=== PATIENT | female | born 1955 | race Caucasian/White ===

== ENCOUNTER 2021-05-10 08:18 | Outpatient (CLI) | payer MEDICARE, BC, SELFPAY ==
--- NOTE | ~2021-05-10 | MM_ITS ---
EXAMINATION: MM screening [facility] BI w vicky HISTORY: Screening mammogram TECHNIQUE: Craniocaudal and mediolateral oblique 3-D tomosynthesis images were obtained and synthetic 2-D images were generated. CAD analysis was submitted and interpreted. COMPARISON: 12/24/2018, 10/16/2016 4315 BREAST PARENCHYMAL COMPOSITION: There are scattered areas of fibroglandular density. FINDINGS: There is no evidence of suspicious mass, calcification, or architectural distortion to sugg est malignancy in either breast. There has been no suspicious interval change. IMPRESSION: 1. No mammographic evidence of malignancy. 2. Recommend routine screening mammography in one year. BI-RADS Category 1: Negative Reviewed, dictated and finalized at location A.
== END 2021-05-10 08:19 | disposition home or self-care (01) ==
LOC: ANHIMG 08:28
PROVIDERS: PCP Family Medicine; Visit Provider Obstetrics & Gynecology
DX: Z12.31 Encounter for screening mammogram for malignant neoplasm of breast (principal)
CPT/HCPCS: 77063; 77067

== ENCOUNTER 2023-01-02 09:52 | Outpatient (CLI) | payer MEDICARE, BC, SELFPAY ==
--- NOTE | ~2023-01-02 | MM_ITS ---
EXAMINATION: MM screening [facility] BI w vicky HISTORY: Screening mammogram TECHNIQUE: Craniocaudal and mediolateral oblique 3-D tomosynthesis images were obtained and synthetic 2-D images were generated. CAD analysis was submitted and interpreted. COMPARISON: 05/10/2021, 12/24/2018, 10/16/2016 BREAST PARENCHYMAL COMPOSITION: There are scattered areas of fibroglandular density. FINDINGS: No suspicious mass, calcification, or architectural distortion are identified in either prisca ast to suggest malignancy. There has been no suspicious interval change. IMPRESSION: 1. No mammographic evidence of malignancy. 2. Recommend routine screening mammography in one year. BI-RADS Category 1: Negative Reviewed, dictated and finalized at location A.
== END 2023-01-02 09:53 | disposition home or self-care (01) ==
PROVIDERS: PCP Family Medicine; Visit Provider Family Medicine
DX: Z12.31 Encounter for screening mammogram for malignant neoplasm of breast (principal)
CPT/HCPCS: 77063; 77067

== ENCOUNTER 2023-08-13 13:43 | Outpatient (CLI) | payer MEDICARE, BC, SELFPAY ==
--- NOTE | ~2023-08-13 | DEXA_ITS ---
Bone Density Report Name: EDWIGE SANDERS Age: 67 Sex: Female Ethnicity: White Date of : 1955 Indication: osteopenia; parental hip fracture; cancer; postmenopausal Referring Provider: MAILE HSIEH Study: Bone densitometry was performed. Exam Date: August 13, 2023 Accession number: [id number] Bone Density: Region BMD T-score Z-score Classification AP Spine(L1-L4) 0.845 -1.8 0.1 Osteopenia Femoral Neck (Left) 0.622 -2.0 -0.4 Osteopenia Total Hip (Left) 0.742 -1.6 -0.3 Osteopenia Femoral Neck (Right) 0.688 -1.5 0.2 Osteopenia Total Hip (Right) 0.779 -1.3 0.0 Osteopenia Total Hip Mean 0.761 -1.5 -0.2 Osteopenia World Health Organization criteria for BMD impression classify patients as: Normal (T-score at or above -1.0), Osteopenia (T-score between -1.0 and -2.5), or Osteoporosis (T-score at or below -2.5). 10-year Fracture Risk(1): Major Osteoporotic Fracture 19% Hip Fracture 3.0% Reported Risk Factors: [place] (), Neck BMD=0.622, BMI=26.2, parental fracture (1) FRAX(R) Version 3.08. Fracture probability calculated for an untreated patient. Fracture probability may be lower if the patient has received treatment. Previous Exams: Region Exam Age BMD T-score BMD Change BMD Change Date g/cm2 vs Baseline vs Previous AP Spine (L1-L4) 08/13/2023 67 0.845 -1.8 0.012 (1.5%) 0.005 (0.6%) 12/24/2018 63 0.840 -1.9 0.007 (0.9%) 0.007 (0.9%) 10/16/2016 60 0.833 -1.9 Total Hip(Left) 08/13/2023 67 0.742 -1.6 -0.008 (-1.1%) -0.011 (-1.5%) 12/24/2018 63 0.753 -1.5 0.003 (0.4%) 0.003 (0.4%) 10/16/2016 60 0.750 -1.6 Total Hip(Right) 08/13/2023 67 0.779 -1.3 -0.001 (-0.2%) -0.012 (-1.5%) 12/24/2018 63 0.791 -1.2 0.010 (1.3%) 0.010 (1.3%) 10/16/2016 60 0.781 -1.3 *Denotes significance at 95% confidence level, LSC for AP Spine = 0.022 g/cm2, LSC for Total Hip = 0.027 g/cm2 Clinical Information Provided by Patient: Parent has had a hip fracture Has used the following medications: Vitamin D, Calcium Has the following medical conditions: Cancer Patient maximum height was 63 Menopause Age: 55 Drinks caffeinated beverages Onset of menses at age 13 Number of children 1 Impression: The patient has low bone mass, based on the Left Femoral Neck T-score. The patient has an estimated ten-year risk of hip fracture of 3% and an estimated ten-year risk of major fracture of
== END 2023-08-13 13:44 | disposition home or self-care (01) ==
LOC: ANHIMG 13:45
PROVIDERS: PCP Family Medicine; Visit Provider Family Medicine
DX: Z78.0 Asymptomatic menopausal state (principal); M85.88 Other specified disorders of bone density and structure, other site; M85.852 Other specified disorders of bone density and structure, left thigh; M85.851 Other specified disorders of bone density and structure, right thigh
CPT/HCPCS: 77080

== ENCOUNTER 2023-11-08 10:02 | Emergency (ER) | payer MEDICARE, BC, SELFPAY ==
--- NOTE | 2023-11-08 10:07 | ED.URI ---
HPI - URI/Sore Throat General Chief Complaint: Upper Respiratory Infection Stated Complaint: Sore Throat,Head Congestion Time Seen by Provider: 11/08/23 10:26 Source: patient, RN notes reviewed and old records reviewed Mode of arrival: ambulatory Limitations: no limitations History of Present Illness HPI Narrative: 67-year-old female presents to the [facility] with complaints of chills sore throat and head congestion that started yesterday Reports that her daughter and grandson were positive for COVID 1 on last Friday, 6 days ago 1 on Friday, 3 days ago Onset (ago): day(s) (1) Treatments prior to arrival: acetaminophen Related Data Home Medications Medication Instructions Recorded Confirmed calcium carbonate 600 mg-vitamin 1 cap PO BID 09/20/19 11/08/23 D3 5 mcg (200 unit) capsule (Calcium 600 + D(3)) gbpenixu-jlc-zhrzq ac 400 1 tablet PO DAILY 08/19/23 11/08/23 mcg-calcium carb 500 mg-vit K1 20 mcg tablet (Women's 50 Plus Multivitamin) Allergies Allergy/AdvReac Type Severity Reaction Status Date / Time Sulfa (Sulfonamide AdvReac Mild Rash Verified 11/08/23 10:10 Antibiotics) tetracycline AdvReac Mild Rash Verified 11/08/23 10:10 Review of Systems Review of Systems: All systems reviewed & are unremarkable except as noted in HPI and below Constitutional: Constitutional: Reports no additional constitutional complaints Eyes: Eyes: Reports no additional eye complaints ENT: Reports as per HPI, Reports nasal congestion and Reports sore throat Cardiovascular: Cardiovascular: Reports no additional cardiovascular complaints, Denies chest pain and Denies dyspnea Respiratory: Respiratory: Reports no additional respiratory complaints, Denies chest congestion, Denies cough and Denies dyspnea Gastrointestinal: Gastrointestinal: Reports no additional gastrointestinal complaints, Denies abdominal pain, Denies nausea and Denies vomiting Musculoskeletal: Musculoskeletal: Reports no additional musculoskeletal complaints Integumentary/Breasts: Skin/Breast: Reports system reviewed and no additional complaints, except as docu Neurologic: Reports system reviewed and no additional complaints, except as documented Psychiatric: Psychiatric: Reports no additional psychiatric complaints Allergic/Immunologic: Allergic/Immunologic: Reports no additional allergic/immunologic complaints PMFSH Past Medical History Medical History Osteopenia Personal history of bladder cancer Pure hypercholesterolemia Surgical History Surgical History History of appendectomy 12/22/2014 History of ear surgery 1981 History of foot surgery 1985 History of lithotripsy 09/2011 History of tonsillectomy High School History of transurethral resection of bladder tumor (TURBT) 12/09/2014 Family History Family History Mother Cerebrovascular accident Other Diabetes mellitus Family history of malignant neoplasm Social History Social History Smoking status: Never smoker Alcohol intake: never Substance use: never Substance use type: does not use Lack of Transportation: No Lack of Food: Never True Current Housing: I Have Housing Concerned About Future Housing: No Difficulty Paying Gas/Electric Bills: No Difficulty Paying for Meds: No Currently Unemployed: No Education: Bachelor's Degree Difficulty w/ Childcare or Family Care: No Living arrangements: with family Occupation/Education: retired Gender identity (if verbalized by the patient): Female Sexual Orientation (if Verbalized by the Patient): Straight or Heterosexual Spiritual care concerns: No Agree to blood products: No Comments At the time of my signature, I reviewed and agree with the nursing past medic
[2023-11-08 10:17] VITALS: BP 134/67; PULSE 99; RESP 16; TEMP 36.4; O2SAT 100
== END 2023-11-08 11:06 | disposition home or self-care (01) ==
PROVIDERS: Emergency Provider Nurse Practitioner; PCP Family Medicine
DX: J06.9 Acute upper respiratory infection, unspecified (principal); Z20.822 Contact with and (suspected) exposure to COVID-19; E78.00 Pure hypercholesterolemia, unspecified; M85.80 Other specified disorders of bone density and structure, unspecified site; Z85.51 Personal history of malignant neoplasm of bladder
CPT/HCPCS: 87426; 87804; 99213; G0463

== ENCOUNTER 2024-04-19 09:50 | Outpatient (CLI) | payer MEDICARE, BC, SELFPAY | END 2024-04-19 09:51 | PROVIDERS: PCP Family Medicine; Visit Provider Family Medicine | DX: M25.562 Pain in left knee (principal) | CPT/HCPCS: 73562 ==

== ENCOUNTER 2024-04-22 15:43 | Outpatient (CLI) | payer MEDICARE, BC, SELFPAY ==
--- NOTE | ~2024-04-22 | MM_ITS ---
EXAMINATION: MM screening [facility] BI w vicky HISTORY: Screening TECHNIQUE: Craniocaudal and mediolateral oblique 3-D tomosynthesis images were obtained and synthetic 2-D images were generated. CAD analysis was submitted and interpreted. COMPARISON: Comparison to multiple prior studies sequentially, with oldest reviewed study dated 11/2014. BREAST PARENCHYMAL COMPOSITION: Not dense: There are scattered areas of fibroglandular density. FINDINGS: There is no evidence of suspicious mass, calcification, or architectural distortion to sugg est malignancy in either breast. There has been no suspicious interval change. IMPRESSION: 1. No mammographic evidence of malignancy. 2. Recommend routine screening mammography in one year. BI-RADS Category 1: Negative Reviewed, dictated and finalized at location B.
== END 2024-04-22 15:44 | disposition home or self-care (01) ==
LOC: ANHIMG 15:44
PROVIDERS: PCP Family Medicine; Visit Provider Family Medicine
DX: Z12.31 Encounter for screening mammogram for malignant neoplasm of breast (principal)
CPT/HCPCS: 77063; 77067

== ENCOUNTER 2024-10-19 12:37 | Outpatient (CLI) | payer MEDICARE, BC, SELFPAY ==
--- NOTE | 2024-10-19 | ECG_ITS ---
Test Date: 2024-10-19 13:32:38 Measurements Intervals Bradley Rate: 61 P: 68 MN: 200 QRS: 35 QRSD: 98 T: 31 QT: 399 QTc: 405 Interpretive Statements SINUS RHYTHM INCOMPLETE RIGHT BUNDLE BRANCH BLOCK VOLTAGE CRITERIA FOR LVH CONSIDER INFERIOR INFARCT, AGE INDETERMINATE NONSPECIFIC T-WAVE ABNORMALITY- ANTERIOR LEADS ABNORMAL ECG No previous ECG available for comparison Electronically Signed On 10-19-2024 13:43:25 SENIOR AUDIT MANAGER by Shashi Pettit D.O.
--- OUTSIDE RECORDS SUMMARY | 2024-10-19 12:47 | XMS_ITS | Patient Health Summary ---
Author Organization [facility] Address [address] [place] [address] Care Team Providers Care Cpa Tax Name Role Phone Talat Rosales MD Primary Care Provider [phone] Note from [facility],non-owned Affiliates and Associated Physician Practices is amultiple site organization consisting of ambulatory clinics and hospital sitesin [place], [place], [place] and [place]. This disclosure is being madepursuant to the Care Everywhere program and may not contain all information available regarding this patient. Last updated 18.[facility] Social History Tobacco Use Types Packs/Day Years Used Date Smoking Tobacco: Never Assessed Sex and Gender Information Value Date Recorded Sex Assigned at Not on file Gender Identity Not on file Sexual Orientation Not on file Procedures * DERMATOPATHOLOGY(Performed 10/23/2023) * DERMATOPATHOLOGY(Performed 08/28/2016) Results * DERMATOPATHOLOGY (10/23/2023 9:34 AM GROMMET WORKER) Only the most recent of2 resultswithin the time period is included. Case Report Dermatopathology Report ? Case: [id number] ? Authorizing Provider: ??Irena Mabry MD ? Collected: ? 10/23/2023 09:34 AM ? Ordering Location: ? [facility] ? Received: ?10/24/2023 04:40 PM ? Pathologist: ? Janice Martinez MD ? Specimen: ?Skin, right lateral cheek ? 4 12:[address] [facility] Final Diagnosis Specimen A. SKIN, right lateral cheek: HYPERPLASTIC (HYPERTROPHIC) ACTINIC KERATOSIS (L57.0) (see microscopic description) 12:[address] [facility] Clinical History R/O NMSC 12:[address] [facility] Gross Description Specimen A: Received is one formalin filled container labeled with the patient's name and designated right lateral cheek. The specimen consists of a shave biopsy measuring 2x4x1 mm. Jar 0. 12:[address] [facility] Microscopic Description Specimen A. SKIN, right lateral cheek: There is hyperkeratosis alternating with parakeratosis. There is epidermal hyperplasia with disorderly maturation of keratinocytes with nuclear pleomorphism confined to the lower half of the epidermis. Additional deeper sections were obtained and reviewed. 12:[address] [facility] Disclaimer An external and internal positive and negative controls are appropriate for the histochemical, immunohistochemical and immunofluorescence stain(s) in this case (if any), except where stated explicitly. The performance characteristics of the stain(s) cited in this report were developed and its performance characteristic determined by the Dermatopathology Laboratory at [facility], directed by Dr. Shilo Hall. These tests need not be, and therefore are not, approved by the [place] Food and Drug Administration. The tests are used for clinical purposes. Billing Codes Specimen Charges Stain Charges 52297 1 4 12:[address] [facility] Embedded Images 12:19 PM GROMMET WORKER DERMATOPATHOLOGY LABORATORY Pathology/Cytolo gy TISSUE SPECIMEN FROM SKIN / Unknown 10/23/2023 9:34 AM GROMMET WORKER 10/24/2023 4:40 PM GROMMET WORKER Irena Mabry MD LAB - PATHOLOGY/CYT OLOGY ORDERABLES DERMATOPATHOLOGY LABORATORY [facility] - Department of Dermatology [facility] [address] [place] [address], [address] [phone] Care Teams Cpa Tax Relationship Specialty Start Date End Date Talat Rosales MD PCP - General 11/22/14
--- OUTSIDE RECORDS SUMMARY | 2024-10-19 12:47 | XMS_ITS | Referral Summary ---
Author Organization [facility] Address [address] [place] [address] Care Team Providers Care Maintenance Shop Technician Name Role Phone Talat Rosales MD Primary Care Provider [phone] Source Comments [facility],non-owned Affiliates and Associated Physician Practices is amultiple site organization consisting of ambulatory clinics and hospital sitesin [place], [place], [place] and [place]. This disclosure is being madepursuant to the Care Everywhere program and may not contain all information available regarding this patient. Last updated 18.[facility] Social History Tobacco Use Types Packs/Day Years Used Date Smoking Tobacco: Never Assessed Sex and Gender Information Value Date Recorded Sex Assigned at Not on file Gender Identity Not on file Sexual Orientation Not on file Plan of Treatment Not on file Care Teams Maintenance Shop Technician Relationship Specialty Start Date End Date Talat Rosales MD [facility] - General 11/22/14
--- OUTSIDE RECORDS SUMMARY | 2024-10-19 12:47 | XMS_ITS | Referral Summary ---
Author Organization [facility] Address [address] [place] [address] Care Team Providers Care Surgical Services Director Name Role Phone Talat Rosales MD Primary Care Provider [phone] Allergies Active Allergy Reactions Criticality Noted Date Comments Sulfa (Sulfonamide Antibiotics) Rash Medium 03/15 Tetracyclines Rash Medium 04/02/2019 Medications calcium carbonate-vitami n D3 (CALTRATE 600 + D) 1500 mg (600 mg elemental) -400 units per tablet Take 1 tablet by mouth daily Active Active Problems Problem Noted Date Diagnosed Date Sensorineural hearing loss ( SNHL) of right ear with restricted hearing of left ear 10/17/2021 Otosclerosis of left ear 03/04/2019 Overview (03/04/2019): Added automatically from request for surgery [id number] Mixed conductive and sensori neural hearing loss of right ear with restricted hearing of left ear 03/04/2019 Overview (03/04/2019): Added automatically from request for surgery [id number] Social History Tobacco Use Types Packs/Day Years Used Date Smoking Tobacco: Never Smokeless Tobacco: Never Alcohol Use Standard Drinks/Week Comments Never 0 (1 standard drink = 0.6 oz pur e alcohol) AUDIT-C Answer Date Recorded Frequency of Alcohol Consumption Never 04/02/2019 Average Number of Drinks Not on file 019 Frequency of Binge Drinking Not on file 03/15 Comments No Sex and Gender Information Value Date Recorded Sex Assigned at Not on file Legal Sex Female 7:59 PM BROKER ASSOCIATE Gender Identity Not on file Sexual Orientation Not on file Last Filed Vital Signs Vital Sign Reading Time Taken Comments Blood Pressure 126/67 04/02/2019 9:45 AM CDT Pulse 57 04/02/2019 9:50 AM CDT Temperature 36.4 ??C (97.5 ??F) 04/02/2019 9:22 AM CD T Respiratory Rate 17 10/15/2021 8:15 AM BROKER ASSOCIATE Oxygen Saturation 98% 04/02/2019 9:50 AM CDT Inhaled Oxygen Concentration - - Weight 63.5 kg (140 lb) 10/15/2021 8:15 AM BROKER ASSOCIATE Height 160 cm (5' 3 ) 10/15/2021 8:15 AM BROKER ASSOCIATE Body Mass Index 24.8 10/15/2021 8:15 AM BROKER ASSOCIATE Plan of Treatment Not on file Medical Devices Implanted Type Area Adjustment Examiner Device Identifier Shelf Expiration Date Model / Serial / Lot [employer] 469-097 Eclipse .5mm 4.25mm Shaft Piston Prosthesis Ossicular Nitinol - [id number] Implanted:Qty: 1 on 04/02/2019 by Jose Leiva Jr., MD at [facility] Piston Left: [employer] [id number] 03/12/2021 [id number] / / [id number] Insurance MEDICARE [facility] Care Teams Surgical Services Director Relationship Specialty Start Date End Date Talat Rosales MD [address] [place] [id number] PCP - General 04/02/19
--- OUTSIDE RECORDS SUMMARY | 2024-10-19 12:47 | XMS_ITS | Clinical Summary ---
Author Organization [facility] Address [address] [place] [address] Care Team Providers Care Cloth Desizing Range Tender Name Role Phone Talat Rosales MD Primary Care Provider [phone] Allergies Active Allergy Reactions Criticality Noted Date [...] (03/04/2019): Added automatically from request for surgery [id number] Mixed conductive and sensori neural hearing loss of right ear with restricted hearing of left ear 03/04/2019 Overview (03/04/2019): Added automatically from request for surgery [id number] Surgical History Surgery Date Site/Laterality Comments FOOT SURGERY 09/15/1984 - 09/14/1985 BLADDER SURGERY November 2014, Jun 2015 STAPEDOTOMY 09/15/1982 - 09/14/1983 Left APPENDECTOMY 09/15/2014 - 09/14/2015 TONSILLECTOMY 09/15/1973 - 09/14/1974 Medical History Medical History Date Comments Cancer (CMS/HCC) (HCC) Bladder C ancer Tinnitus HL (hearing loss) Family History Medical History Relation Name Comments Cancer Other Relation Name Status Comments Other Social History Tobacco Use Types Packs/Day Years [...] on file Legal Sex Female 7:59 PM AUTOMATIC SCREWMAKER Gender Identity Not on file Sexual Orientation Not on file Obstetrics History Last Filed Vital Signs Vital Sign Reading Time Taken Comments Blood Pressure 126/67 04/02/2019 9:45 AM CDT Pulse 57 04/02/2019 9:50 AM CDT Temperature 36.4 ??C (97.5 ??F) 04/02/2019 9:22 AM CD T Respiratory Rate 17 10/15/2021 8:15 AM AUTOMATIC SCREWMAKER Oxygen Saturation 98% 04/02/2019 9:50 AM CDT Inhaled Oxygen Concentration - - Weight 63.5 kg (140 lb) 10/15/2021 8:15 AM AUTOMATIC SCREWMAKER Height 160 cm (5' 3 ) 10/15/2021 8:15 AM AUTOMATIC SCREWMAKER Body Mass Index 24.8 10/15/2021 8:15 AM AUTOMATIC SCREWMAKER Plan of Treatment Not on file Medical Devices Implanted Type Area Physical Trainer Device Identifier Shelf Expiration Date Model / Serial / Lot [employer] [id number] Eclipse .5mm 4.25mm Shaft Piston Prosthesis Ossicular Nitinol - [id number] Implanted:Qty: 1 on 04/02/2019 by Jose Leiva Jr., MD at [facility] Piston Left: [employer] [id number] 03/12/2021 [id number] / / [id number] Insurance [employer] ACCESS MEDICARE [facility] Care Teams Cloth Desizing Range Tender Relationship Specialty Start Date End Date Talat Rosales MD [address] [place] [id number] PCP - General 04/02/19
--- OUTSIDE RECORDS SUMMARY | 2024-10-19 12:47 | XMS_ITS | Encounter Summary ---
Author Organization [facility] Address [address] [facility] [place] [address] Care Team Providers Care Regional Director Name Role Phone Talat Rosales MD Primary Care Provider [phone] Encounter Details Date Type Department Care Team (Late st Contact Info) Description 10/23/2023 Lab Requisition [facility] - DermPath Lab [address] [facility], [place] [address] Irena Mabry MD [address] [facility] 3 [place] [address] Social History Tobacco Use Types Packs/Day Years Used Date Smoking Tobacco: Never Assessed Sex and Gender Information Value Date Recorded Sex Assigned at Not on file Gender Identity Not on file Sexual Orientation Not on file documented as of this encounter Plan of Treatment Not on file documented as of this encounter Procedures Procedure Name Priority Date/Time Associated Diagnosis Comments DERMATOPATHOLOGY Routine 10/23/2023 9:34 AM CLAY STRUCTURE BUILDER AND SERVICER documented in this encounter Results * DERMATOPATHOLOGY (10/23/2023 9:34 AM CLAY STRUCTURE BUILDER AND SERVICER) Case Report Dermatopathology Report ? Case: [id number] ? Authorizing Provider: ??Irena Mabry MD ? Collected: ? 10/23/2023 09:34 AM ? Ordering Location: ? [facility] ? Received: ?10/24/2023 04:40 PM ? Pathologist: ? Janice Martinez MD ? Specimen: ?Skin, right lateral cheek ? 12:19 PM [facility] DERMATOPATHOLOGY LABORATORY Final Diagnosis Specimen A. SKIN, right lateral cheek: HYPERPLASTIC (HYPERTROPHIC) ACTINIC KERATOSIS (L57.0) (see microscopic description) 12:19 PM [facility] DERMATOPATHOLOGY LABORATORY Clinical History R/O NMSC 12:19 PM [facility] DERMATOPATHOLOGY LABORATORY Gross Description Specimen A: Received is one formalin filled container labeled with the patient's name and designated right lateral cheek. The specimen consists of a shave biopsy measuring 2x4x1 mm. Jar 0. 12:19 PM [facility] DERMATOPATHOLOGY LABORATORY Microscopic Description Specimen A. SKIN, right lateral cheek: There is hyperkeratosis alternating with parakeratosis. There is epidermal hyperplasia with disorderly maturation of keratinocytes with nuclear pleomorphism confined to the lower half of the epidermis. Additional deeper sections were obtained and reviewed. 12:19 PM [facility] DERMATOPATHOLOGY LABORATORY Disclaimer An external and internal positive and negative controls are appropriate for the histochemical, immunohistochemical and immunofluorescence stain(s) in this case (if any), except where stated explicitly. The performance characteristics of the stain(s) cited in this report were developed and its performance characteristic determined by the Dermatopathology Laboratory at [facility], directed by Dr. Shilo Hall. These tests need not be, and therefore are not, approved by the [place] Food and Drug Administration. The tests are used for clinical purposes. Billing Codes Specimen Charges Stain Charges 85553 1 02/13/202 4 12:19 PM CLAY STRUCTURE BUILDER AND SERVICER DERMATOPATHOLOGY LABORATORY Embedded Images 4 12:19 PM CLAY STRUCTURE BUILDER AND SERVICER DERMATOPATHOLOGY LABORATORY Pathology/Cytolo gy TISSUE SPECIMEN FROM SKIN / Unknown 10/23/2023 9:34 AM CLAY STRUCTURE BUILDER AND SERVICER 10/24/2023 4:40 PM CLAY STRUCTURE BUILDER AND SERVICER Irena Mabry MD LAB - PATHOLOGY/CYT OLOGY ORDERABLES DERMATOPATHOLOGY LABORATORY [facility] - Department of Dermatology [facility] Specialized Medicine [address] [place] [address], [address] [phone] documented in this encounter Visit Diagnoses Not on filedocumented in this encounter Care Teams Regional Director Relationship Specialty Start Date End Date Talat Rosales MD PCP - General 11/22/14 documented as of this encounter
--- OUTSIDE RECORDS SUMMARY | 2024-10-19 12:47 | XMS_ITS | Clinical Summary ---
Author Organization [facility] Address [address] [facility] [place] [address] Care Team Providers Care Vault Worker Name Role Phone Talat Rosales MD Primary Care Provider [phone] Source Comments [facility] [email or web address],non-owned Affiliates and Associated Physician Practices is amultiple site organization consisting of ambulatory clinics and hospital sitesin [place], [place], [place] and [place]. This disclosure is being madepursuant to the Care Everywhere program and may not contain all information available regarding this patient. Last updated 18.[facility] [email or web address] Social History Tobacco Use Types Packs/Day Years Used Date Smoking Tobacco: Never Assessed Sex and Gender Information Value Date Recorded Sex Assigned at Not on file Gender Identity Not on file Sexual Orientation Not on file Plan of Treatment Health Maintenance Due Date Last Done Comments BONE DENSITY TESTING 1955 COLOGUARD (AGES 45-75) - COL ON CA SCREENING 1955 COLON MONITORING 1955 COLONOSCOPY - COLON CA SCREENING 1955 CT COLONOGRAPHY - COLON CA SCREENING 1955 Colorectal Cancer Screening 1955 FIT - COLON CA SCREENING 1955 FLEX SIG - COLON CA SCREENING 1955 LIPID TESTING 1955 MAMMOGRAM 1955 MEDICARE AWV ? 12 MONTHS 1955 HEPATITIS C SCREENING 12/10/1973 DTAP/TDAP/TD VACCINES (1 - Tdap) 12/14/1974 PNEUMOCOCCAL VACCINE 50+ (1 of 1 - PCV) 12/14/2005 ZOSTER VACCINE (1 of 2) 12/14/2005 COVID-19 VACCINE ( - 2023-2 5 season) 2024 INFLUENZA VACCINE (#1) 2024 DEPRESSION SCREENING 09/15/2024 Respiratory Syncytial Virus (RSV) Vaccine Pt: or over 60 yrs (1 - 1-dose 75+ series) 12/14/2030 HEPATITIS B VACCINE Aged Out No longe r eligible based on patient's age to complete this topic HIB VACCINE Aged Out No longer eligi ble based on patient's age to complete this topic HPV VACCINE Aged Out No longer eligi ble based on patient's age to complete this topic MENINGOCOCCAL (Group B) VACCINE Aged Out No longer eligible based on patient's age to complete this topic MENINGOCOCCAL VACCINE Aged Out No brynn doc eligible based on patient's age to complete this topic Care Teams Vault Worker Relationship Specialty Start Date End Date Talat Rosales MD PCP - General 11/22/14
[2024-10-19 16:41] LABS: Alanine Aminotransferase 25 U/L (6-35); Albumin Level 4.5 g/dL (3.5-5.1); Alkaline Phosphatase 82 U/L (38-126); Anion Gap 9 mmol/L (4-12); Aspartate Amino Transferase 31 U/L (14-36); Bilirubin,Total 0.6 mg/dL (0.2-1.3); Blood Urea Nitrogen 16 mg/dL (7-17); Calcium 9.4 mg/dL (8.4-10.2); Carbon Dioxide 25 mmol/L (22-30); Chloride 105 mmol/L (98-107); Estimated Glomerular Filt Rate > 60; Glucose 90 mg/dL (65-110); Potassium 4.1 mmol/L (3.4-5.0); Sodium 139 mmol/L (137-145)
== END 2024-10-19 12:38 | disposition home or self-care (01) ==
PROVIDERS: PCP Family Medicine; Visit Provider Podiatrist Foot & Ankle Surgery
DX: Z01.818 Encounter for other preprocedural examination (principal); I45.10 Unspecified right bundle-branch block; R94.31 Abnormal electrocardiogram [ECG] [EKG]
CPT/HCPCS: 36415; 80053; 93005

== ENCOUNTER 2025-05-07 16:01 | Emergency (ER) | payer MEDICARE, BC, SELFPAY ==
--- OUTSIDE RECORDS SUMMARY | 2004-06-28 05:45 | XMS_ITS | Continuity of Care Document ---
Author Organization [facility] Address [address] [place] [address] [facility] [address] [place] [address] Phone Care Team Providers Care Base Remover Name Role Phone Shun Judd DO Unavailable Unavailable Advance Directives Directive Yes / No Effective Date File Name No Information Encounters Encounter Description Practice Location Reason(s) For Visit Diagnoses Date Provider Providers Copied on Encounter [facility], [id number] [place] [address] [address], [place], [place], [id number], [place] tel:[phone] [facility] No Information Dutch Chen. [address] [place], [address], [place]. tel: [phone] Family History Family Member Type Diagnosis Age At Onset No Information Payers Payer name Insurance type Covered green party ID Authoriza tion(s) No Information Social History Type Description Quantity Date Captured Comments Sex Male Smoking Status No Information Chief Complaint And Reason For Visit No Information Reason For Referral Reason For Referral No Information History Of Present Illness Encounter Date Complaint History Of Prese nt Illness No Information Functional Status Date Functional Assessmen t No Information Instructions Date Instruction Additional Infor mation No Information Assessments Type Assessment Date No Information Patient Care Teams Name Effective Dates (start - stop) Status Members No Information
--- NOTE | ~2025-05-07 | XR_ITS ---
XR foot RT min 3V 05/07/2025 16:32 Indication: Toe injury Procedure: 4 views right foot Comparison: No prior studies for comparison. Findings: There is a screw transfixing the first proximal phalanx. There is osteotomy defect of the first metatarsal consistent with hallux valgus repair. There is osteotomy defect distal aspect of the second proximal phalanx. Lisfranc joint intact. No acute fracture or traumatic malalignment. There is a surgical screw in the second metatarsal head. Impression: 1: No acute bone or joint abnormality. 2: Postsurgical changes consistent with hallux valgus repair. Reviewed, dictated and finalized at location O. Impression: 1: No acute bone or joint abnormality. 2: Postsurgical changes consistent with hallux valgus repair.
--- OUTSIDE RECORDS SUMMARY | 2025-05-07 16:04 | XMS_ITS | Clinical Summary ---
Author Organization [facility] Address [address] [facility] [place] [address] Care Team Providers Care Software Lead Name Role Phone Talat Rosales MD Primary Care Provider [phone] Source Comments [facility] [employer],non-owned Affiliates and Associated Physician Practices is amultiple site organization consisting of ambulatory clinics and hospital sitesin [place], [place], [place] and [place]. This disclosure is being madepursuant to the Care Everywhere program and may not contain all information available regarding this patient. Last updated 18.[facility] [employer] Social History Tobacco Use Types Packs/Day Years Used Date Smoking Tobacco: Never Assessed Comments Unknown Sex and Gender Information Value Date Recorded Sex Assigned at Not on file Legal Sex Female 5:47 PM OPEN DEVELOPER OPERATOR Gender Identity Not on file Sexual Orientation [...] LIPID TESTING 1955 MAMMOGRAM 1955 MEDICARE AWV 12 MONTHS 1955 HEPATITIS C SCREENING 12/10/1973 DTAP/TDAP/TD VACCINES (1 - Tdap) 12/14/1974 PNEUMOCOCCAL VACCINE 50+ (1 of 1 - PCV) 12/14/2005 ZOSTER VACCINE (1 of 2) 12/14/2005 COVID-19 VACCINE ( - 2023-2 5 season) 2024 DEPRESSION SCREENING 09/15/2024 INFLUENZA VACCINE (#1) 2025 Respiratory Syncytial Virus (RSV) Vaccine Pt: or [...] to complete this topic MENINGOCOCCAL (Group B) VACC INE SHARED DECISION-MAKING Aged Out No longer eligibl e based on patient's age to complete this topic MENINGOCOCCAL GROUPS A/C/Y/W VACCINE Aged Out No longer eligible b ased on patient's age to complete this topic Insurance [facility] MEDICARE [facility] Care Teams Software Lead Relationship Specialty Start Date End Date Talat Rosales MD PCP - General 11/22/14
--- OUTSIDE RECORDS SUMMARY | 2025-05-07 16:04 | XMS_ITS | Clinical Summary ---
Author Organization [facility] Address [address] [place] [address] Care Team Providers Care Impact Hammer Operator Name Role Phone Talat Rosales MD Primary Care Provider [phone] Allergies Active Allergy Reactions Criticality Noted Date [...] (03/04/2019): Added automatically from request for surgery [id number] Mixed conductive and sensori neural hearing loss of right ear with restricted hearing of left ear 03/04/2019 Overview (03/04/2019): Added automatically from request for surgery [id number] Surgical History Surgery Date Site/Laterality Comments FOOT SURGERY 09/15/1984 - 09/14/1985 BLADDER SURGERY November 2014, Jun 2015 STAPEDOTOMY 09/15/1982 - 09/14/1983 Left APPENDECTOMY 09/15/2014 - 09/14/2015 TONSILLECTOMY 09/15/1973 - 09/14/1974 Medical History Medical History Date Comments Cancer (HCC) Bladder Cancer Tinnitus HL (hearing loss) Family History Medical [...] on file Legal Sex Female 7:59 PM COMMUNITY HEALTH EDUCATOR Gender Identity Not on file Sexual Orientation Not on file Obstetrics History Last Filed Vital Signs Vital Sign Reading Time Taken Comments Blood Pressure 126/67 04/02/2019 9:45 AM CDT Pulse 57 04/02/2019 9:50 AM CDT Temperature 36.4 C (97.5 F) 04/02/2019 9:22 AM CDT Respiratory Rate 17 10/15/2021 8:15 AM COMMUNITY HEALTH EDUCATOR Oxygen Saturation 98% 04/02/2019 9:50 AM CDT Inhaled Oxygen Concentration - - Weight 63.5 kg (140 lb) 10/15/2021 8:15 AM COMMUNITY HEALTH EDUCATOR Height 160 cm (5' 3) 10/15/2021 8:15 AM COMMUNITY HEALTH EDUCATOR Body Mass Index 24.8 10/15/2021 8:15 AM COMMUNITY HEALTH EDUCATOR Plan of Treatment Not on file Medical Devices Implanted Type Area Wireline Supervisor Device Identifier Shelf Expiration Date Model / Serial / Lot [employer] [id number] Eclipse .5mm 4.25mm Shaft Piston Prosthesis Ossicular Nitinol - [id number] Implanted:Qty: 1 on 04/02/2019 by Jose Leiva Jr., MD at [facility] Piston Left: [employer] [id number] 03/12/2021 [id number] / / [id number] Insurance ACCESS MEDICARE [facility] Address: [address] [address] [place] [address] [facility] Care Teams Impact Hammer Operator Relationship Specialty Start Date End Date Talat Rosales MD [address] [place] [id number] PCP - General 04/02/19
--- OUTSIDE RECORDS SUMMARY | 2025-05-07 16:04 | XMS_ITS | Encounter Summary ---
Author Organization [facility] Address [address] [place] [address] Care Team Providers Care Interchange Agent Name Role Phone Talat Rosales MD Primary Care Provider [phone] Encounter Details Date Type Department Care Team (Late st Contact Info) Description 10/23/2023 Lab Requisition [facility] Lab [address] [facility] [place] [address] Irena Mabry MD [address] [facility] [address] [place] [address] Social History Tobacco Use Types Packs/Day Years Used Date Smoking Tobacco: Never Assessed Comments Unknown Sex and Gender Information Value Date Recorded Sex Assigned at Not on file Legal Sex Female 5:47 PM LOG CHAIN WORKER Gender Identity Not on file Sexual Orientation Not on file documented as of this encounter Plan of Treatment Not on file documented as of this encounter Procedures Procedure Name Priority Date/Time Associated Diagnosis Comments DERMATOPATHOLOGY Routine 10/23/2023 9:34 AM LOG CHAIN WORKER documented in this encounter Results * DERMATOPATHOLOGY (10/23/2023 9:34 AM LOG CHAIN WORKER) Case Report Dermatopathology Report Case: [id number] Authorizing Provider: Irena Mabry MD Collected: 10/23/2023 09:34 AM Ordering Location: [facility] DermPath Lab Received: 10/24/2023 04:40 PM Pathologist: Janice Martinez MD Specimen: Skin, right lateral cheek 12:19 PM LOG CHAIN WORKER DERMATOPATHOLOGY LABORATORY Final Diagnosis Specimen A. SKIN, right lateral cheek: HYPERPLASTIC (HYPERTROPHIC) ACTINIC KERATOSIS (L57.0) (see microscopic description) 12:19 PM LOG CHAIN WORKER DERMATOPATHOLOGY LABORATORY at [address] LOG CHAIN WORKER Clinical History R/O NMSC 4 12:19 PM [facility] DERMATOPATHOLOGY LABORATORY Gross Description Specimen A: Received is one formalin filled container labeled with the patient's name and designated right lateral cheek. The specimen consists of a shave biopsy measuring 2x4x1 mm. Jar 0. 4 12:19 PM [facility] DERMATOPATHOLOGY LABORATORY Microscopic Description Specimen A. SKIN, right lateral cheek: There is hyperkeratosis alternating with parakeratosis. There is epidermal hyperplasia with disorderly maturation of keratinocytes with nuclear pleomorphism confined to the lower half of the epidermis. Additional deeper sections were obtained and reviewed. 12:19 PM [facility] DERMATOPATHOLOGY LABORATORY Disclaimer An external and internal positive and negative controls are appropriate for the histochemical, immunohistochemical and immunofluorescence stain(s) in this case (if any), except where stated explicitly. The performance characteristics of the stain(s) cited in this report were developed and its performance characteristic determined by the Dermatopathology Laboratory at [facility], directed by Dr. Shilo Hall. These tests need not be, and therefore are not, approved by the [place] Food and Drug Administration. The tests are used for clinical purposes. Billing Codes Specimen Charges Stain Charges 44546 1 4 12:19 PM [facility] DERMATOPATHOLOGY LABORATORY Embedded Images 4 12:19 PM [facility] DERMATOPATHOLOGY LABORATORY Pathology/Cytolo gy TISSUE SPECIMEN FROM SKIN / Unknown 10/23/2023 9:34 AM LOG CHAIN WORKER 10/24/2023 4:40 PM [facility] Irena Mabry MD LAB - PATHOLOGY/CYTOLOGY OR DERABLES Final Result DERMATOPATHOLOGY LABORATORY [facility] - Department of Dermatology [facility] Medicine [address] [place] [address], [address] [phone] documented in this encounter Visit Diagnoses Not on filedocumented in this encounter Care Teams Interchange Agent Relationship Specialty Start Date End Date Talat Rosales MD PCP - General 11/22/14 documented as of this encounter
[2025-05-07 16:13] VITALS: BP 134/60; PULSE 75; RESP 18; TEMP 36.2; O2SAT 98
--- NOTE | 2025-05-07 16:18 | ED.WOUNDLAC ---
HPI - Wound/Laceration General Chief Complaint: Wound/Laceration Stated Complaint: Fall / Head Cut Time Seen by Provider: 05/07/25 16:18 Source: patient Mode of arrival: ambulatory Limitations: no limitations History of Present Illness HPI narrative: Natalie is a 69-year-old female patient presenting to the clinic today with complaints of a fall that occurred around 10:00 a.m. this morning. She reports she cut the back of her head as well as injured her right 3rd toe. She was carrying items-tripped on deck, hit her head on the door and he right 3rd toe got caught jammed down. She reports her right 3rd toe went underneath her and she scraped it on the floor. Has a superficial cut to the left posterior scalp. Did not losing consciousness. She denies any neck pain. Tetanus UTD. Related Data Home Medications ?Medication ?Instructions ?Recorded ?Confirmed ?Last Taken ?Type calcium 600 mg (as 1 cap PO BID 09/20/19 05/07/25 3 Days Ago History carbonate)-vitamin D3 5 mcg (200 ~10/02/19 unit) capsule (Calcium 600 + D(3)) [id number] ac 400 1 tablet PO DAILY 08/19/23 05/07/25 Unknown History mcg-calcium carb 500 mg-vit K1 20 mcg tablet (Women's 50 Plus Multivitamin) Allergies Allergy/AdvReac Type Severity Reaction Status Date / Time Sulfa (Sulfonamide AdvReac Mild Rash Verified 05/07/25 16:09 Antibiotics) tetracycline AdvReac Mild Rash Verified 05/07/25 16:09 Review of Systems Review of Systems: Pertinent positives per HPI. Patient denies any fever, chills, rash, headache, visual changes, dizziness, cough, runny nose, sore throat, shortness of breath, chest pain, palpitations, nausea, vomiting, diarrhea, constipation, abdominal pain, or any urinary issues. [facility] Past Medical History Medical History Pure hypercholesterolemia Personal history of bladder cancer Osteopenia Surgical History Surgical History History of lithotripsy 09/2011 History of ear surgery 1980 History of foot surgery 1984 History of tonsillectomy High School History of transurethral resection of bladder tumor (TURBT) 12/09/2014 History of appendectomy 12/22/2014 Family History Family History Mother Cerebrovascular accident Other Diabetes mellitus Family history of malignant neoplasm Social History Social History Smoking status: Never smoker Alcohol intake: never Substance use: never Substance use type: does not use Do You Feel Safe in your Home?: Yes Lack of Transportation: No Lack of Food: Never True Current Housing: I Have Housing Concerned About Future Housing: No Difficulty Paying Gas/Electric Bills: No Difficulty Paying for Meds: No Currently Unemployed: No Education: Bachelor's Degree Difficulty w/ Childcare or Family Care: No Living arrangements: with family Occupation/Education: retired Gender identity (if verbalized by the patient): Female Sexual Orientation (if Verbalized by the Patient): Straight or Heterosexual Spiritual care concerns: No Agree to blood products: No Comments At the time of my signature, I reviewed and agree with the nursing past medical, surgical, social, and family history. There is no relevant family history pertinent to the patient complaint. Exam Narrative: General: Well-developed, well nourished, in no apparent distress Head: Normocephalic, 1 cm superficial scalp laceration to the posterior head, bleeding controlled Cardio: Regular rate and rhythm, s1 and s2 normal, no murmur appreciated. Resp: Clear to auscultation bilaterally, no rhonchi, rales, wheezing or rubs. Musculoskeletal: No deformity, contusion to the distal right 3rd toe with some old blood around the nail,tender to palpation over the distal toe, grossly normal range of motion, muscle strength strong and equal, peripheral pulse strong, no edema, no cyanosis, normal gait and station Integumentary: Stout, warm, and dry, intact without lesion, no rashes. Course Course Emergency Course: Portions of this record may have been created with voice recognition software. Level of Care: Express Care Visit Vital Signs Vital signs: Vital Signs Temperature 36.2 C L 05/07/25 16:13 Pulse Rate 75 05/07/25 16:13 Respiratory Rate 18 05/07/25 16:13 Blood Pressure 134/60 05/07/25 16:13 Pulse Oximetry 98 08/23/25 16:13 Oxygen Delivery Room Air 05/07/25 16:13 Temperature 36.2 C L 05/07/25 16:13 Pulse Rate 75 05/07/25 16:13 Respiratory Rate 18 05/07/25 16:13 Blood Pressure 134/60 05/07/25 16:13 Pulse Oximetry 98 05/07/25 16:13 Oxygen Delivery Room Air 05/07/25 16:13 Vital signs reviewed MDM - Wound/Laceration MDM Narrative Medical decision making narrative: At the time of visit patient is resting comfortably on the exam table. Patient appears to be nontoxic. complaints of a fall that occurred around 10:00 a.m. this morning. She reports she cut the back of her head as well as injured her right 3rd toe. She was carrying items-tripped on deck, hit her head on the door and he right 3rd toe got caught jammed down. She reports her right 3rd toe went underneath her and she scraped it on the floor. Has a superficial cut to the left posterior scalp. Did not losing consciousness. She denies any neck pain. Tetanus UTD. Diagnostics: X-ray of the right foot was negative for any sign of fracture or malalignment. Plan: I suspect patient has a superficial head scalp laceration and right 3rd toe contusion. Supportive measures were discussed with the patient and they voiced understanding discharge instructions and agrees to treatment plan. Return precautions reviewed Differential Diagnosis Differential diagnosis: Likely laceration, abscess, abrasion, avulsion of skin and other (Contusion, toe fracture, sprain) Imaging Data Radiologist's impression: ITS Impressions Foot X-Ray 05/07/25 16:36 Impression: 1: No acute bone or joint abnormality. 2: Postsurgical changes consistent with hallux valgus repair. Discharge Plan Discharge Clinical Impression: Superficial laceration of scalp Qualifiers: Encounter type: initial encounter Qualified Code(s): S01.01XA - Laceration without foreign body of scalp, initial encounter Contusion of toe of right foot Qualifiers: Encounter type: initial encounter Toe: lesser toe Damage to nail status: without damage Qualified Code(s): S90.121A - Contusion of right lesser toe(s) without damage to nail, initial encounter Patient Disposition: Home Condition: Stable Instructions: Antibiotic Form, Laceration (ED), Contusion in Adults (ED) Additional Instructions: Laceration discharge instructions: Right foot x-rays negative for any sign of fracture or malalignment. Superficial laceration to the scalp-no need for staple or stitches Keep wounds clean and dry May apply triple antibiotic ointment to the wound twice daily times 48 hours then leave open air Watch for signs and symptoms of infection- redness, streaking, swelling, purulent discharge, or increase in pain. Follow up with your PCP in 2-3 days for wound check Patient Language: Niuean Prescriptions: No Action Women's 50 Plus Multivitamin 400 mcg-500 mg calcium-20 mcg tablet 1 tablet PO DAILY calcium carbonate-vitamin D3 [Calcium 600 + D(3)] 600 mg calcium- 200 unit Capsule 1 cap PO BID Follow-up/Referrals: Talat Rosales MD [Primary Care Provider, [facility]] Time of Disposition: 16:41 Quality NIHSS Nursing Documentation ED NIHSS nursing documentation: reviewed/agree
== END 2025-05-07 16:47 | disposition home or self-care (01) ==
PROVIDERS: Emergency Provider Nurse Practitioner Family; PCP Family Medicine
DX: S01.01XA Laceration without foreign body of scalp, initial encounter (principal); S90.121A Contusion of right lesser toe(s) without damage to nail, initial encounter; W01.0XXA Fall on same level from slipping, tripping and stumbling without subsequent striking against object, initial encounter; E78.00 Pure hypercholesterolemia, unspecified; M85.80 Other specified disorders of bone density and structure, unspecified site; Z85.51 Personal history of malignant neoplasm of bladder
CPT/HCPCS: 73630; 73660; 99213; G0463

== ENCOUNTER 2025-05-30 08:37 | Outpatient (CLI) | payer MEDICARE, BC, SELFPAY ==
--- OUTSIDE RECORDS SUMMARY | 2004-06-28 05:45 | XMS_ITS | Continuity of Care Document ---
Author Organization [facility] Address [address] [place] [address] [facility] [address] [place] [address] Phone Care Team Providers Care Director Of Hemophilia Name Role Phone Shun Judd DO Unavailable Unavailable Advance Directives Directive Yes / No Effective Date File Name No Information Encounters Encounter Description Practice Location Reason(s) For Visit Diagnoses Date Provider Providers Copied on Encounter [facility], [id number] [place] [address] [address], [place], [place], [id number], [place] tel:[phone] [facility] No Information Dutch Chen. [address] [place], [address], [place]. tel: [phone] Family History Family Member Type Diagnosis Age At Onset No Information Payers Payer name Insurance type Covered republican ID Authoriza tion(s) No Information Social History [...]
--- NOTE | ~2025-05-30 | MM_ITS ---
EXAMINATION: MM screening matthieu BI w vicky HISTORY: Screening TECHNIQUE: Craniocaudal and mediolateral oblique 3-D tomosynthesis images were obtained and synthetic 2-D images were generated. CAD analysis was submitted and interpreted. COMPARISON: 01/02/2023 BREAST PARENCHYMAL COMPOSITION: The breasts are heterogeneously dense, which may obscure small masses. FINDINGS: There is no evidence of suspicious mass, calcification, or architectural distortion in either breast to suggest malignancy. There has been no significant interval change. IMPRESSION: 1. No mammographic evidence of malignancy. Recommend routine screening mammography in one year. BI-RADS Category 1: Negative Reviewed, dictated and finalized at location Q. IMPRESSION: 1. No mammographic evidence of malignancy. Recommend routine screening mammogra phy in one year. BI-RADS Category 1: Negative
--- OUTSIDE RECORDS SUMMARY | 2025-05-30 09:07 | XMS_ITS | Clinical Summary ---
Author Organization [facility] Address [address] [place] [address] Care Team Providers Care Title I Coordinator Name Role Phone Talat Rosales MD Primary Care Provider [phone] Allergies Active Allergy Reactions Criticality Noted Date [...] (03/04/2019): Added automatically from request for surgery [id number] Mixed conductive and sensori neural hearing loss of right ear with restricted hearing of left ear 03/04/2019 Overview (03/04/2019): Added automatically from request for surgery [id number] Surgical History Surgery Date Site/Laterality Comments FOOT [...] on file Legal Sex Female 7:59 PM PEOPLESOFT FSCM DEVELOPER Gender Identity Not on file Sexual Orientation Not on file Obstetrics History Last Filed Vital Signs Vital Sign Reading Time Taken Comments Blood Pressure 126/67 04/02/2019 9:45 AM CDT Pulse 57 04/02/2019 9:50 AM CDT Temperature 36.4 C (97.5 F) 04/02/2019 9:22 AM CDT Respiratory Rate 17 10/15/2021 8:15 AM PEOPLESOFT FSCM DEVELOPER Oxygen Saturation 98% 04/02/2019 9:50 AM CDT Inhaled Oxygen Concentration - - Weight 63.5 kg (140 lb) 10/15/2021 8:15 AM PEOPLESOFT FSCM DEVELOPER Height 160 cm (5' 3) 10/15/2021 8:15 AM PEOPLESOFT FSCM DEVELOPER Body Mass Index 24.8 10/15/2021 8:15 AM PEOPLESOFT FSCM DEVELOPER Plan of Treatment Not on file Medical Devices Implanted Type Area Elevator Mechanic Apprentice Device Identifier Shelf Expiration Date Model / Serial / Lot [employer] [id number] Eclipse .5mm 4.25mm Shaft Piston Prosthesis Ossicular Nitinol - [id number] Implanted:Qty: 1 on 04/02/2019 by Jose Leiva Jr., MD at [facility] Piston Left: Meggan [employer] [id number] 03/12/2021 [id number] / / [id number] Insurance ACCESS MEDICARE [facility] Care Teams Title I Coordinator Relationship Specialty Start Date End Date Talat Rosales MD [address] [place] [id number] PCP - General 04/02/19
--- OUTSIDE RECORDS SUMMARY | 2025-05-30 09:07 | XMS_ITS | Clinical Summary ---
Author Organization [facility] Address [address] [place] [address] Care Team Providers Care Computer Repair Instructor Name Role Phone Talat Rosales MD Primary Care Provider [phone] Source Comments [facility] [employer],non-owned Affiliates and Associated Physician Practices is amultiple site organization consisting of ambulatory clinics and hospital sitesin [place], [place], [place] and [place]. This disclosure is being madepursuant to the Care Everywhere program and may not contain all information available regarding this patient. 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
--- OUTSIDE RECORDS SUMMARY | 2025-05-30 09:07 | XMS_ITS | Encounter Summary ---
Author Organization [facility] Address [address] [place] [address] Care Team Providers Care Finance Teacher Name Role Phone Talat Rosales MD Primary Care Provider [phone] Encounter Details Date Type Department Care Team (Late st Contact Info) Description 10/23/2023 Lab Requisition [facility] - DermPath Lab [address] [facility] [address], [facility] [place] [address] Irena Mabry MD [address] [facility] [address] [place] [address] Social History Tobacco Use Types Packs/Day Years Used Date Smoking Tobacco: Never Assessed Comments Unknown Sex and Gender Information Value Date Recorded Sex Assigned at Not on file Legal Sex Female 5:47 PM STOCKLAYER Gender Identity Not on file Sexual Orientation Not on file documented as of this encounter Plan of Treatment Not on file documented as of this encounter Procedures Procedure Name Priority Date/Time Associated Diagnosis Comments DERMATOPATHOLOGY Routine 10/23/2023 9:34 AM STOCKLAYER documented in this encounter Results * DERMATOPATHOLOGY (10/23/2023 9:34 AM STOCKLAYER) Case Report Dermatopathology Report Case: [id number] Authorizing Provider: Irena Mabry MD Collected: 10/23/2023 09:34 AM Ordering Location: [facility] Derm[facility] Lab Received: 10/24/2023 04:40 PM Pathologist: Janice Martinez MD Specimen: Skin, right lateral cheek 12:19 PM STOCKLAYER DERMATOPATHOLOGY LABORATORY Final Diagnosis Specimen A. SKIN, right lateral cheek: HYPERPLASTIC (HYPERTROPHIC) ACTINIC KERATOSIS (L57.0) (see microscopic description) 12:19 PM STOCKLAYER DERMATOPATHOLOGY LABORATORY at [address]19 STOCKLAYER Clinical History R/O NMSC 4 12:19 PM [...] by the Dermatopathology Laboratory at [facility], directed by Dr. Shilo Hall. These tests need not be, and therefore are not, approved by the [place] Food and Drug Administration. The tests are used for clinical purposes. Billing Codes Specimen Charges Stain Charges 16272 1 4 12:19 PM [facility] DERMATOPATHOLOGY LABORATORY Embedded Images 4 12:19 PM [facility] DERMATOPATHOLOGY LABORATORY Pathology/Cytolo gy TISSUE SPECIMEN FROM SKIN / Unknown 10/23/2023 9:34 AM STOCKLAYER 10/24/2023 4:40 PM [facility] Irena Mabry MD LAB - PATHOLOGY/CYTOLOGY OR DERABLES Final Result DERMATOPATHOLOGY LABORATORY [facility] - Department of Dermatology [facility] Medicine [address] [place] [address], [address] [phone] documented in this encounter Visit Diagnoses Not on filedocumented in this encounter Care Teams Finance Teacher Relationship Specialty Start Date End Date Talat Rosales MD PCP - General 11/22/14 documented as of this encounter
== END 2025-05-30 08:38 | disposition home or self-care (01) ==
PROVIDERS: PCP Family Medicine; Visit Provider Family Medicine
DX: Z12.31 Encounter for screening mammogram for malignant neoplasm of breast (principal)
CPT/HCPCS: 77063; 77067

== ENCOUNTER 2025-08-09 16:26 | Outpatient (CLI) | payer MEDICARE, BC, SELFPAY ==
--- NOTE | ~2025-08-09 | XR_ITS ---
EXAMINATION: XR knee LT 3V, 08/09/2025 16:35 CHAINSTITCH BINDER HISTORY: M25.562 - Pain in left knee COMPARISON: No comparisons available. Findings: No acute fracture or malalignment. Moderate tricompartmental degenerative changes Soft tissues unremarkable. Impression: No acute fracture or malalignment. Reviewed, dictated and finalized at location P. NSTITCH BINDER Impression: No acute fracture or malalignment.
== END 2025-08-09 16:27 | disposition home or self-care (01) ==
LOC: MICIMG 16:27
PROVIDERS: PCP Family Medicine; Visit Provider Family Medicine
DX: M25.562 Pain in left knee (principal)
CPT/HCPCS: 73562

== ENCOUNTER 2025-08-31 12:36 | Emergency (ER) | payer MEDICARE, BC, SELFPAY ==
[2025-08-31] VITALS (11 sets, daily range): BP systolic 126–161; BP diastolic 69–94; PULSE 71–74; RESP 16–18; TEMP 36.3–36.4; O2SAT 97–100
--- NOTE | ~2025-08-31 | CT_ITS ---
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 Mild hydronephrosis or pelvocaliectasis of the upper pole moiety. 4 mm nonobstructing lower pole left kidney stone. Punctate midpole left kidney stone. No right-sided stones. No right ureteral or urinary bladder stones seen. The bowel gas pattern is nonobstructive with no free air free fluid or pneumatosis. Anteflex uterus and adnexal regions unremarkable. No grossly inflamed appendix, AAA or gross CT evidence of acute cholecystitis or pancreatitis. Stomach unremarkable. Lung bases clear. Heart size normal. Degenerative changes throughout the lumbar spine. The bones appear intact. No bulky mesenteric or retroperitoneal lymphadenopathy or masses seen. 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 Other left-sided kidney stones also noted. Reviewed, dictated and finalized at location A. 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 Other left-sided kidney sto harmeet also noted.
--- NOTE | 2025-08-31 13:08 | ED.FEMALEGU ---
HPI - Female Genitourinary General Chief complaint: Urogenital-Female <Emily Briggs APRN - Last Filed: 08/31/25 13:10> Stated complaint: L FLANK/ABD PAIN THIS AM <Emily Briggs APRN - Last Filed: 08/31/25 13:10> Time Seen by Provider: 08/31/25 13:08 <Emily Briggs APRN - Last Filed: 08/31/25 13:10> Focused HPI: Patient is a 69-year-old female who presents to the ER with left flank pain and abdominal pain. She reports she got into the indoor swimming full this morning and started experiencing left flank pain. When she got out of the pool she reports the pain started radiating to her stomach and it is worsening. Patient endorses a history of kidney stones, bladder cancer, and high blood pressure. She denies any chest pain, shortness of breath, hematuria or recent fevers. GENERAL: Well-appearing, well-nourished, and in no acute distress. HEAD: Normocephalic, atraumatic. CHEST: Clear to auscultation. ?No respiratory distress. HEART: Regular rate and rhythm.? NEURO: ?Alert and oriented x3. Patient screened in triage and initial orders placed.? ?Additional care and disposition to be based upon?diagnostic testing and treatment. <Emily Briggs APRN - Last Filed: 08/31/25 13:10> History of Present Illness HPI Narrative: Agree with HPI <Sudeep Spivey DO - Last Filed: 08/31/25 22:18> Related Data Home medications: Home Medications ?Medication ?Instructions ?Recorded ?Confirmed ?Last Taken ?Type calcium 600 mg (as 1 cap PO BID 09/20/19 06/17/25 3 Days Ago History carbonate)-vitamin D3 5 mcg (200 ~10/02/19 unit) capsule (Calcium 600 + D(3)) [id number] ac 400 1 tablet PO DAILY 08/19/23 06/17/25 Unknown History mcg-calcium carb 500 mg-vit K1 20 mcg tablet (Women's 50 Plus Multivitamin) <Emily Briggs APRN - Last Filed: 08/31/25 13:10> Allergies/Adverse reactions: Allergies Allergy/AdvReac Type Severity Reaction Status Date / Time Sulfa (Sulfonamide AdvReac Mild Rash Verified 08/31/25 12:37 Antibiotics) tetracycline AdvReac Mild Rash Verified 08/31/25 12:37 <Emily Briggs APRN - Last Filed: 08/31/25 13:10> [facility] Past Medical History Medical History: Medical History Pure hypercholesterolemia Personal history of bladder cancer Osteopenia <Emily Briggs APRN - Last Filed: 08/31/25 13:10> Surgical History Surgical History: Surgical History History of lithotripsy 09/2011 History of ear surgery 1980 History of foot surgery 1984 History of tonsillectomy High School History of transurethral resection of bladder tumor (TURBT) 12/09/2014 History of appendectomy 12/22/2014 <Emily Briggs APRN - Last Filed: 08/31/25 13:10> Family History Family History: Family History Mother Cerebrovascular accident Other Diabetes mellitus Family history of malignant neoplasm <Emily Briggs APRN - Last Filed: 08/31/25 13:10> Social History Social History: Social History (Updated 06/17/25 @ 14:20 by Annie Martinez MA) Smoking status: Never smoker Alcohol intake: never Substance use: never Substance use type: does not use Lack of Transportation: No Lack of Food: Never True Current Housing: I Have Housing Concerned About Future Housing: No Difficulty Paying Gas/Electric Bills: No Difficulty Paying for Meds: No Currently Unemployed: No Education: Bachelor's Degree Difficulty w/ Childcare or Family Care: No Living arrangements: with family Occupation/Education: retired Gender identity (if verbalized by the patient): Female Sexual Orientation (if Verbalized by the Patient): Straight or Heterosexual Spiritual care concerns: No Agree to blood products: No <Emily Briggs APRN - Last Filed: 08/31/25 13:10> Course Vital Signs Vital signs: Vital Signs Temperature 97.3 F L 08/31/25 12:54 Pulse Rate 71 08/31/25 12:54 Respiratory Rate 18 08/31/25 12:54 Blood Pressure 146/69 H 08/31/25 12:54 Pulse Oximetry 99 08/31/25 12:54 Temperature 97.5 F L 08/31/25 15:46 Pulse Rate 74 08/31/25 18:16 Respiratory Rate 16 08/31/25 18:16 Blood Pressure 144/84 H 08/31/25 18:16 Pulse Oximetry 100 08/31/25 18:16 <Emily Briggs, ROOFING CONTRACTOR - Last Filed: 08/31/25 13:10> Vital Signs Temperature 97.3 F L 08/31/25 12:54 Pulse Rate 71 08/31/25 12:54 Respiratory Rate 18 08/31/25 12:54 Blood Pressure 146/69 H 08/31/25 12:54 Pulse Oximetry 99 08/31/25 12:54 Temperature 97.5 F L 08/31/25 15:46 Pulse Rate 74 08/31/25 18:16 Respiratory Rate 16 08/31/25 18:16 Blood Pressure 144/84 H 08/31/25 18:16 Pulse Oximetry 100 08/31/25 18:16 <Sudeep Spivey DO - Last Filed: 08/31/25 22:18> MDM MDM Narrative Medical decision making narrative: 69-year-old female Presenting for left flank pain. On initial evaluation patient was in no acute distress afebrile, hemodynamic stable. Differentials include but are not limited to: Ureterolithiasis, pyelonephritis, MSK pain, constipation, obstruction, PNA, Cancer Notable exam findings: Minimal abdominal tenderness to palpation, no CVA tenderness I personally reviewed the patient's lab result. Notable lab findings: Mild leukocytosis at 11.1, CMP without significant abnormalities. UA with some hematuria. CT abdomen/pelvis revealed a 4 mm nonobstructive left proximal ureterolithiasis without hydronephrosis or hydroureter. Patient has had multiple episodes of ureterolithiasis the past. Is nonobstructive this time. She is going a trip tomorrow and is concerned about pain control here. She was given prescriptions for Toradol, [place], Zofran, Flomax. She was advised follow-up with her urologist, Dr. High, in the next week for re-evaluation. Patient was agreeable to this plan. Given strict return precautions. <Sudeep Spivey DO - Last Filed: 08/31/25 22:18> Differential Diagnosis Differential Diagnosis: Ureterolithiasis, pyelonephritis, MSK pain, constipation, obstruction, PNA, Cancer <Sudeep Spivey DO - Last Filed: 08/31/25 22:18> Lab Data Result diagrams: 08/31/25 13:22 08/31/25 13:22 <Emily Briggs, ROOFING CONTRACTOR - Last Filed: 08/31/25 13:10> Labs: Lab Results 08/31/25 Range/Units 13:22 WBC 11.1 H (4.5-10.0) K/mm3 RBC 4.36 (4.2-5.4) M/mm3 Hgb 13.1 (12.0-15.0) g/dL Hct 41.6 (37.0-47.0) % MCV 95.4 (80-100) fl MCH 30.0 (26-34) pg MCHC 31.5 L (32-36) g/dl RDW 13.2 (11.5-14.5) % Plt Count 331 (150-375) k/mm3 MPV 9.4 (7.4-10.4) fl Immature Gran % (Auto) 0.6 H (0-0.5) % Neut % (Auto) 65.3 (45.5-73.1) % Lymph % (Auto) 26.9 (18.3-44.2) % [place] % (Auto) 5.9 (2.6-8.5) % Eos % (Auto) 0.8 (0-4.4) % Baso % (Auto) 0.5 (0.2-1.2) % Lymph # (Auto) 2.99 (0.9-3.2) K/mm3 [place] # (Auto) 0.7 H (0.1-0.6) K/mm3 Eos # (Auto) 0.1 (0-0.3) K/mm3 Baso # (Auto) 0.1 (0.0-0.1) K/mm3 Abs Immat Gran (auto) 0.07 H (0.00-0.031) K/mm3 Absolute Neuts (auto) 7.2 H (1.3-6.7) K/mm3 Absolute Nucleated RBC 0.000 (0.0-0.012) K/mm3 Nucleated RBC % 0.0 (0.0-0.2) % Sodium 140 (137-145) mmol/L Potassium 3.9 (3.4-5.0) mmol/L Chloride 107 (98-107) mmol/L Carbon Dioxide 26 (22-30) mmol/L Anion Gap 7 (4-12) mmol/L BUN 14 (7-17) mg/dL Creatinine 0.69 L (0.7-1.0) mg/dL Estim Creat Clear Calc 55 ml/min Estimated GFR > 60 (59 - ) Glucose 96 (65-110) mg/dL Calcium 9.4 (8.4-10.2) mg/dL Total Bilirubin 0.5 (0.2-1.3) mg/dL AST 27 (14-36) U/L ALT 25 (6-35) U/L Alkaline Phosphatase 96 (38-126) U/L Total Protein 7.7 (6.3-8.2) g/dL Albumin 4.5 (3.5-5.1) g/dL Lipase 82 (23-300) U/L Urine Color Yellow (Yellow) Urine Appearance Clear (Clear) Urine pH 6.0 (5.0-9.0) Ur Specific [place] 1.022 (1.001-1.035) Urine Protein Negative (Negative) mg/dL Urine Glucose (UA) Negative (Negative) mg/dL Urine Ketones Negative (Negative) mg/dL Ur Blood (Man) 1+ H (Negative) Urine Nitrate Negative (Negative) Urine Bilirubin Negative (Negative) Urine Urobilinogen 0.2 (<2.0) mg/dL Leukocyte Esterase Rfl Trace H (Negative) MICHAEL/UL Urine RBC 3-5 H (0-2) /hpf Urine WBC 0-5 (0-3) /hpf Ur Squamous Epith Cells None seen (Few) /hpf Urine Bacteria None seen /hpf Urine Casts 0-2 <Emily Briggs, ROOFING CONTRACTOR - Last Filed: 08/31/25 13:10> Lab Results 08/31/25 Range/Units 13:22 WBC 11.1 H (4.5-10.0) K/mm3 RBC 4.36 (4.2-5.4) M/mm3 Hgb 13.1 (12.0-15.0) g/dL Hct 41.6 (37.0-47.0) % MCV 95.4 (80-100) fl MCH 30.0 (26-34) pg MCHC 31.5 L (32-36) g/dl RDW 13.2 (11.5-14.5) % Plt Count 331 (150-375) k/mm3 MPV 9.4 (7.4-10.4) fl Immature Gran % (Auto) 0.6 H (0-0.5) % Neut % (Auto) 65.3 (45.5-73.1) % Lymph % (Auto) 26.9 (18.3-44.2) % [place] % (Auto) 5.9 (2.6-8.5) % Eos % (Auto) 0.8 (0-4.4) % Baso % (Auto) 0.5 (0.2-1.2) % Lymph # (Auto) 2.99 (0.9-3.2) K/mm3 [place] # (Auto) 0.7 H (0.1-0.6) K/mm3 Eos # (Auto) 0.1 (0-0.3) K/mm3 Baso # (Auto) 0.1 (0.0-0.1) K/mm3 Abs Immat Gran (auto) 0.07 H (0.00-0.031) K/mm3 Absolute Neuts (auto) 7.2 H (1.3-6.7) K/mm3 Absolute Nucleated RBC 0.000 (0.0-0.012) K/mm3 Nucleated RBC % 0.0 (0.0-0.2) % Sodium 140 (137-145) mmol/L Potassium 3.9 (3.4-5.0) mmol/L Chloride 107 (98-107) mmol/L Carbon Dioxide 26 (22-30) mmol/L Anion Gap 7 (4-12) mmol/L BUN 14 (7-17) mg/dL Creatinine 0.69 L (0.7-1.0) mg/dL Estim Creat Clear Calc 55 ml/min Estimated GFR > 60 (59 - ) Glucose 96 (65-110) mg/dL Calcium 9.4 (8.4-10.2) mg/dL Total Bilirubin 0.5 (0.2-1.3) mg/dL AST 27 (14-36) U/L ALT 25 (6-35) U/L Alkaline Phosphatase 96 (38-126) U/L Total Protein 7.7 (6.3-8.2) g/dL Albumin 4.5 (3.5-5.1) g/dL Lipase 82 (23-300) U/L Urine Color Yellow (Yellow) Urine Appearance Clear (Clear) Urine pH 6.0 (5.0-9.0) Ur Specific [place] 1.022 (1.001-1.035) Urine Protein Negative (Negative) mg/dL Urine Glucose (UA) Negative (Negative) mg/dL Urine Ketones Negative (Negative) mg/dL Ur Blood (Man) 1+ H (Negative) Urine Nitrate Negative (Negative) Urine Bilirubin Negative (Negative) Urine Urobilinogen 0.2 (<2.0) mg/dL Leukocyte Esterase Rfl Trace H (Negative) MICHAEL/UL Urine RBC 3-5 H (0-2) /hpf Urine WBC 0-5 (0-3) /hpf Ur Squamous Epith Cells None seen (Few) /hpf Urine Bacteria None seen /hpf Urine Casts 0-2 <Sudeep Spivey DO - Last Filed: 08/31/25 22:18> Imaging Data Radiologist's impression: ITS Impressions Abdomen/Pelvis CT 08/31/25 13:44 IMPRESSION: Stone protocol CT demonstrating 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 Other left-sided kidney stones also noted. 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 Other left-sided kidney stones also noted. <Sudeep Spivey DO - Last Filed: 08/31/25 22:18> Discharge Plan Discharge Clinical Impression: Ureterolithiasis <Emily Briggs APRN - Last Filed: 08/31/25 13:10> Patient Disposition: Home <Emily SaeedAlexandru Briggs ROOFING CONTRACTOR - Last Filed: 08/31/25 13:10> Condition: Stable <Emily Gama Briggs APRN - Last Filed: 08/31/25 13:10> Instructions: Antibiotic Form, Kidney Stones (ED) <Emilygayathri Briggs ROOFING CONTRACTOR - Last Filed: 08/31/25 13:10> Additional Instructions: You were found to have a 4 mm kidney stone. This may pass on its own. Your given prescriptions for Toradol, [place], Flomax, take these as prescribed. Continue to drink plenty of fluids. Follow up with Dr. High, urology, in the next week for re-evaluation. Return to the ED for any new worsening symptoms. <Emily Briggs ROOFING CONTRACTOR - Last Filed: 08/31/25 13:10> Patient Language: Malian <Emily Briggs APRN - Last Filed: 08/31/25 13:10> Prescriptions: New ketorolac 10 mg tablet 10 mg PO Q8H PRN (Reason: pain) Qty: 15 0RF Rx Instructions: maximum total duration of 5 days from all oral, intranasal, or parenteral formulations hydrocodone-acetaminophen 5-325 mg tablet 1 tablet PO Q8H PRN (Reason: pain, severe) Qty: 9 0RF ondansetron 4 mg tablet,disintegrating 4 mg PO Q8H PRN (Reason: nausea and vomiting) Qty: 12 0RF tamsulosin 0.4 mg capsule 0.4 mg PO HS Qty: 30 0RF No Action Women's 50 Plus Multivitamin 400 mcg-500 mg calcium-20 mcg tablet 1 tablet PO DAILY ciprofloxacin HCl 500 mg tablet 500 mg PO Q12H Qty: 14 0RF fluconazole 150 mg tablet 150 mg PO ONCE Qty: 2 0RF Rx Instructions: As a single dose. If persistent symptoms repeat 72 hours after the first dose calcium carbonate-vitamin D3 [Calcium 600 + D(3)] 600 mg calcium- 200 unit Capsule 1 cap PO BID <Emily Briggs APRN - Last Filed: 08/31/25 13:10> Follow-up/Referrals: Talat Rosales MD [Primary Care Provider, Family Practice] <Emily Briggs, ROOFING CONTRACTOR - Last Filed: 08/31/25 13:10>
[2025-08-31 13:32] LABS: Add Urine Microscopic? YES; Appearance Urine Clear (Clear); Glucose Urine UA Negative (Negative); Leukocyte Esterase Ur Trace LEU/UL (Negative); Nitrate Urine Negative (Negative); Non Pathogenic Casts 0-2; Specific Grav Ur 1.022 (1.001-1.035)
[2025-08-31 13:47] LABS: Alanine Aminotransferase 25 U/L (6-35); Albumin Level 4.5 g/dL (3.5-5.1); Alkaline Phosphatase 96 U/L (38-126); Anion Gap 7 mmol/L (4-12); Aspartate Amino Transferase 27 U/L (14-36); Bilirubin,Total 0.5 mg/dL (0.2-1.3); Blood Urea Nitrogen 14 mg/dL (7-17); Calcium 9.4 mg/dL (8.4-10.2); Carbon Dioxide 26 mmol/L (22-30); Chloride 107 mmol/L (98-107); Estimated CRCL calculation 55 ml/min; Estimated Glomerular Filt Rate > 60; Glucose 96 mg/dL (65-110); Lipase 82 U/L (23-300); Potassium 3.9 mmol/L (3.4-5.0); Sodium 140 mmol/L (137-145); Total Protein 7.7 g/dL (6.3-8.2)
[2025-08-31 13:57] LABS: Hematocrit 41.6 % (37.0-47.0); Hemoglobin 13.1 g/dL (12.0-15.0); Immature Granulocyte Percent A 0.6 % (0-0.5); Lymphocytes Absolute Auto 2.99 K/mm3 (0.9-3.2); Mean Corpuscular HGB Conc 31.5 g/dl (32-36); Mean Corpuscular Hemoglobin 30.0 pg (26-34); Mean Corpuscular Volume 95.4 fl (80-100); Nucleated Red Blood Cells Absolute Auto 0.000 K/mm3 (0.0-0.012); Nucleated Red Blood Cells Perc 0.0 % (0.0-0.2); Platelet Count Result 331 k/mm3 (150-375); Red Blood Count 4.36 M/mm3 (4.2-5.4); White Blood Count 11.1 K/mm3 (4.5-10.0)
--- OUTSIDE RECORDS SUMMARY | 2025-08-31 14:29 | XMS_ITS | Clinical Summary ---
Author Organization [facility] Address [address] [place] [address] Care Team Providers Care Hose Operator Name Role Phone Talat Rosales MD Primary Care Provider [phone] Allergies Active Allergy Reactions Criticality Noted Date [...] (03/04/2019): Added automatically from request for surgery [id number] Mixed conductive and sensori neural hearing loss of right ear with restricted hearing of left ear 03/04/2019 Overview (03/04/2019): Added automatically from request for surgery [id number] Surgical History Surgery Date Site/Laterality Comments FOOT [...] on file Legal Sex Female 7:59 PM FIELD CLERK Gender Identity Not on file Sexual Orientation Not on file Last Filed Vital Signs Vital Sign Reading Time Taken Comments Blood Pressure 126/67 04/02/2019 9:45 AM CDT Pulse 57 04/02/2019 9:50 AM CDT Temperature 36.4 C (97.5 F) 04/02/2019 9:22 AM CDT Respiratory Rate 17 10/15/2021 8:15 AM FIELD CLERK Oxygen Saturation 98% 04/02/2019 9:50 AM CDT Inhaled Oxygen Concentration - - Weight 63.5 kg (140 lb) 10/15/2021 8:15 AM FIELD CLERK Height 160 cm (5' 3) 10/15/2021 8:15 AM FIELD CLERK Body Mass Index 24.8 10/15/2021 8:15 AM FIELD CLERK Plan of Treatment Not on file Medical Devices Implanted Type Area Headwaiter/Headwaitress Device Identifier Shelf Expiration Date Model / Serial / Lot [employer] [id number] Eclipse .5mm 4.25mm Shaft Piston Prosthesis Ossicular Nitinol - [id number] Implanted:Qty: 1 on 04/02/2019 by Jose Leiva Jr., MD at [facility] Piston Left: Meggan Hanley [facility] [id number] 03/12/2021 [id number] / / [id number] Insurance [employer] ACCESS Member Subscriber Plan / Payer (Ef fective 2019-Present) Name:Natalie Penn Relation to Subscriber:Self Name:Natalie Penn Payer ID:[id number] (NAIC) Group ID:[id number] Type:Care Team Connect Address: [address] [place] [address] MEDICARE [facility] Address: [address] [address] [place] [address] [facility] Member Subscriber Plan / Payer ( fective 2015-Present) Name:Natalie Penn Relation to Subscriber:Self Name:Natalie Penn Payer ID:[id number] (NAIC) Group ID:[id number] Type:Care Team Connect Address: [address] [place] [address] Care Teams Hose Operator Relationship Specialty Start Date End Date Talat Rosales MD [address] [place] [id number] PCP - General 04/02/19
--- OUTSIDE RECORDS SUMMARY | 2025-08-31 14:29 | XMS_ITS | Encounter Summary ---
Author Organization [facility] Address [address] [place] [address] Care Team Providers Care Director Global Strategic Publisher Sales Name Role Phone Talat Rosales MD Primary Care Provider [phone] Encounter Details Date Type Department Care Team (Late st Contact Info) Description 10/23/2023 Lab Requisition [facility] - DermPath Lab [address] [address] [place] [place] [address] Irena Mabry MD [address] [facility] [address] [place] [address] Social History Tobacco Use Types Packs/Day Years Used Date Smoking Tobacco: Never Assessed Comments Unknown Sex and Gender Information Value Date Recorded Sex Assigned at Not on file Legal Sex Female 5:47 PM POPCORN VENDOR Gender Identity Not on file Sexual Orientation Not on file documented as of this encounter Plan of Treatment Not on file documented as of this encounter Procedures Procedure Name Priority Date/Time Associated Diagnosis Comments DERMATOPATHOLOGY Routine 10/23/2023 9:34 AM POPCORN VENDOR documented in this encounter Results * DERMATOPATHOLOGY (10/23/2023 9:34 AM POPCORN VENDOR) Case Report Dermatopathology Report Case: [id number] Authorizing Provider: Irena Mabry MD Collected: 10/23/2023 09:34 AM Ordering Location: [facility] DermPath Lab Received: 10/24/2023 04:40 PM Pathologist: Janice Martinez MD Specimen: Skin, right lateral cheek 12:19 PM [employer] [facility] DERMATOPATHOLOGY LABORATORY Final Diagnosis Specimen A. SKIN, right lateral cheek: HYPERPLASTIC (HYPERTROPHIC) ACTINIC KERATOSIS (L57.0) (see microscopic description) 12:19 PM [employer] [facility] DERMATOPATHOLOGY LABORATORY at [address] [employer]OR Clinical History R/O NMSC 4 12:19 PM [facility] DERMATOPATHOLOGY LABORATORY Gross Description Specimen A: Received is one formalin filled container labeled with the patient's name and designated right lateral cheek. The specimen consists of a shave biopsy measuring 2x4x1 mm. Jar 0. 4 12:19 PM [facility] DERMATOPATHOLOGY LABORATORY Microscopic Description Specimen A. SKIN, right lateral cheek: There is hyperkeratosis alternating with parakeratosis. There is epidermal hyperplasia with disorderly maturation of keratinocytes with nuclear pleomorphism confined to the lower half of the epidermis. Additional deeper sections were obtained and reviewed. 12:19 PM [facility] DERMATOPATHOLOGY LABORATORY Disclaimer An external and internal positive and negative controls are appropriate for the histochemical, immunohistochemical and immunofluorescence stain(s) in this case (if any), except where stated explicitly. The performance characteristics of the stain(s) cited in this report were developed and its performance characteristic determined by the Dermatopathology Laboratory at [facility], directed by Dr. Shilo Hall. These tests need not be, and therefore are not, approved by the [place] Food and Drug Administration. The tests are used for clinical purposes. Billing Codes Specimen Charges Stain Charges 64932 1 4 12:19 PM [facility] DERMATOPATHOLOGY LABORATORY Embedded Images 4 12:19 PM [facility] DERMATOPATHOLOGY LABORATORY Pathology/Cytolo gy TISSUE SPECIMEN FROM SKIN / Unknown 10/23/2023 9:34 AM POPCORN VENDOR 10/24/2023 4:40 PM [facility] Irena Mabry MD LAB - PATHOLOGY/CYTOLOGY OR DERABLES Final Result DERMATOPATHOLOGY LABORATORY [facility] - Department of Dermatology [facility] Medicine [address] [place] [address], [address] [phone] documented in this encounter Visit Diagnoses Not on filedocumented in this encounter Care Teams Director Global Strategic Publisher Sales Relationship Specialty Start Date End Date Talat Rosales MD PCP - General 11/22/14 documented as of this encounter
--- OUTSIDE RECORDS SUMMARY | 2025-08-31 14:29 | XMS_ITS | Clinical Summary ---
Author Organization [facility] Address [address] [facility] [place] [address] Care Team Providers Care Water Pollution Control Technician Name Role Phone Talat Rosales MD Primary Care Provider [phone] Source Comments [facility],non-owned Affiliates and Associated Physician Practices is amultiple site organization consisting of ambulatory clinics and hospital sitesin [place], [place], [place] and [place]. This disclosure is being madepursuant to the Care Everywhere program and may not contain all information available regarding this patient. 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
== END 2025-08-31 18:31 | disposition home or self-care (01) ==
PROVIDERS: Registered Nurse; Emergency Provider Student in an Organized Health Care Education/Training Program; PCP Family Medicine
DX: N13.2 Hydronephrosis with renal and ureteral calculous obstruction (principal); I10 Essential (primary) hypertension; E78.00 Pure hypercholesterolemia, unspecified; M85.80 Other specified disorders of bone density and structure, unspecified site; Z87.442 Personal history of urinary calculi; Z85.51 Personal history of malignant neoplasm of bladder
CPT/HCPCS: 36415; 74176; 80053; 81001; 83690; 85025; 99284